=== PATIENT | female | born 1940 | race African-American/Black ===

== ENCOUNTER 2021-02-24 11:04 | Emergency (ER) | payer MEDICARE, OTHER ==
[~2021-02-24 11:04] MED LIST: BACLOFEN 10MG T10 MG PO; MOBIC7.5 MG PO
[2021-02-24] MEDS ORDERED: MEDROL 4MG DOSEP4 MG PO (12:48)
== END 2021-02-24 13:26 | disposition home or self-care (01) ==
LOC: FER 11:04
DX: S43.421A Sprain of right rotator cuff capsule, initial encounter (principal); S46.011A Strain of muscle(s) and tendon(s) of the rotator cuff of right shoulder, initial encounter; X58.XXXA Exposure to other specified factors, initial encounter; Y92.009 Unspecified place in unspecified non-institutional (private) residence as the place of occurrence of the external cause
CPT/HCPCS: 73060; J1885

== ENCOUNTER 2021-04-19 12:04 | Emergency (ER) | payer MEDICARE, OTHER ==
[~2021-04-19 12:04] MED LIST changes: +MEDROL 4MG DOSEP4 MG PO
[2021-04-19 13:18] LABS: BASOPHIL 0.9 % (0-2); EOSINOPHIL 3.1 % (0-7); HCT 33.9 % (37.0-47.0); HGB 11.1 g/dl (12.5-16.0); LYMPHOCYTE 21.2 % (15-48); MCH 31.7 pg (25.0-31.0); MCHC 32.7 g/dL (32.0-36.0); MCV 96.9 fL (78.0-100.0); MPV 10.2 fL (6.0-9.5); NEUTROPHIL 65.6 % (41-80); NRBC 0; PLT 213 K/uL (150-400); RDW 13.6 % (11.5-14.0); WBC 6.8 K/uL (4.0-10.5)
[2021-04-19 13:26] LABS: IRON % SATURATION 21.7 %SAT (20-50)
[2021-04-19 13:32] LABS: LACTIC ACID 1.5 mmol/L (0.4-1.9)
[2021-04-19 13:34] LABS: INR 0.99 (0.9-1.2); PROTHROMBIN TIME 12.4 SECONDS (11.4-13.6); PTT 27.5 SECONDS (22.2-34.7)
[2021-04-19 13:35] LABS: ALBUMIN 3.6 g/dL (3.4-5.0); ALKALINE PHOSHATASE 65 U/L (46-116); ALT 16 U/L (14-59); AST 19 U/L (15-37); BILIRUBIN - TOTAL 0.4 mg/dL (0.2-1.0); BUN 16 mg/dL (7-18); BUN/CREAT RATIO (CALC) 23.5 RATIO; CHLORIDE 108 mmol/L (98-107); CO2 (BICARBONATE) 31 mmol/L (21-32); CREATININE 0.68 mg/dL (0.51-0.95); GLOBULIN (CALCULATION) 3.8 g/dL; GLUCOSE 127 mg/dL (74-106); LIPASE 67 U/L (73-393); MAGNESIUM 2.3 mg/dL (1.8-2.4); POTASSIUM 4.3 mmol/L (3.5-5.1); TOTAL PROTEIN 7.4 g/dL (6.4-8.2)
[2021-04-19 13:36] LABS: D-DIMER 1.41 ug/mLFEU (0.00-0.41)
[2021-04-19 13:53] LABS: BILIRUBIN NEGATIVE (NEGATIVE); BLOOD NEGATIVE Ery/uL (NEGATIVE); CLARITY CLEAR (CLEAR); COLOR YELLOW (YELLOW); GLUCOSE (U) NORMAL (NORMAL); LEUKOCYTES NEGATIVE Leu/uL (NEGATIVE); NITRITE NEGATIVE (NEGATIVE); PROTEIN NEGATIVE (NEGATIVE); SPECIFIC GRAVITY 1.015 (1.001-1.030); UROBILINOGEN 0.2 mg/dL (0.2-1.0); pH 8.5 (5.0-9.0)
[2021-04-19 14:08] LABS: PRO-BNP 200 pg/mL (<450)
[2021-04-19] MEDS ORDERED: VIBRAMYCIN100 MG PO (14:49)
[2021-04-19] MEDS ORDERED: ONDANSETRON ODT4 MG PO (14:49)
== END 2021-04-19 15:20 | disposition home or self-care (01) ==
LOC: FER 12:04
PROVIDERS: Emergency Medicine
DX: J18.9 Pneumonia, unspecified organism (principal); R01.1 Cardiac murmur, unspecified; R11.0 Nausea; R55 Syncope and collapse; I10 Essential (primary) hypertension; J98.11 Atelectasis; Z79.899 Other long term (current) drug therapy
CPT/HCPCS: 36415; 71045; 71275; 80053; 81003; 83540; 83550; 83605; 83690; 83735; 83880; 84145; 84443; 84484; 85025; 85379; 85610; 85730; 93005; G0480; Q9967

== ENCOUNTER 2022-08-14 12:27 | Emergency (ER) | payer MEDICARE, OTHER ==
[~2022-08-14 12:27] MED LIST changes: +ONDANSETRON ODT4 MG PO; +VIBRAMYCIN100 MG PO
[2022-08-14 13:31] LABS: EOSINOPHIL 3.4 % (0-7); HCT 34.9 % (37.0-47.0); HGB 11.1 g/dl (12.5-16.0); LYMPHOCYTE 24.8 % (15-48); MCH 30.9 pg (25.0-31.0); MCHC 31.8 g/dL (32.0-36.0); MCV 97.2 fL (78.0-100.0); MONOCYTE 9.6 % (0-12); MPV 10.2 fL (6.0-9.5); NEUTROPHIL 60.2 % (41-80); NRBC 0; PLT 208 K/uL (150-400); RBC 3.59 M/uL (4.20-5.40); WBC 6.3 K/uL (4.0-10.5)
[2022-08-14 15:22] LABS: CREATININE 0.68 mg/dL (0.51-0.95)
== END 2022-08-14 17:07 | disposition home or self-care (01) ==
LOC: FER 12:27
PROVIDERS: Nurse Practitioner Family
DX: M25.512 Pain in left shoulder (principal); R07.89 Other chest pain; I10 Essential (primary) hypertension
CPT/HCPCS: 36415; 71045; 80048; 84484; 85025; 93005